=== PATIENT | male | born 1990 | race Caucasian/White ===

== ENCOUNTER 2017-01-02 23:52 | Emergency (ER) | payer SELFPAY ==
[~2017-01-02] VITALS: Ht 170.2 cm; Wt 95.3 kg
[2017-01-02 23:52] VITALS: BP_SYST 143
--- NOTE | 2017-01-02 23:52 | NUR ---
Roger carias in ED - 01/02/17 at 2356 by [email or web address] [facility] up. Report given to MARIA DEL ROSARIO MELTON.
--- NOTE | 2017-01-02 23:52 | NUR ---
Patient to ER bed 4 to gown for evaluation. Side rails up. Report given to MARIA DEL ROSARIO MELTON.
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
--- NOTE | 2017-01-02 23:56 | NUR ---
JULIEN Macias at bedside examining patient.
[2017-01-03 00:07] VITALS: BP_SYST 143
--- NOTE | 2017-01-03 00:07 | NUR ---
Patient given written and verbal discharge instructions and verbalizes understanding. ER MD STOVALL discussed with patient the results and treatment provided. Patient in stable condition. ID arm band removed. NO Rx given. Patient educated on pain management and to follow up with PMD. Pain Scale 0/10. Opportunity for questions provided and answered.
== END 2017-01-03 00:07 ==
LOC: SED 23:52
DX: Z02.89 Encounter for other administrative examinations (principal); F10.129 Alcohol abuse with intoxication, unspecified; V43.52XA Car driver injured in collision with other type car in traffic accident, initial encounter; Y93.89 Activity, other specified; Y92.89 Other specified places as the place of occurrence of the external cause; Y99.8 Other external cause status
CPT/HCPCS: 99283